=== PATIENT | female | born 1930 | race Caucasian/White ===

== ENCOUNTER 2019-06-06 19:36 | Emergency (ER) | payer OTHER ==
[~2019-06-06] VITALS: Ht 170.2 cm; Wt 71.2 kg
[~2019-06-06 19:36] MED LIST: ALEVE220 MG PO; ASPIR 8181 MG PO; CALCIUM 600 +1 EAC1 PO; GLIPIZIDE 10 MG10 MG PO; GLUCOPHAGE1000 MG PO; IBUPROFEN 200200 M1 PO; LANTUSSOLASTAR SUBQ; NOVOLOG100 UNIT/M SUBQ; VITAMIN D5000 UNIT PO
[2019-06-06] MEDS ORDERED: XARELTO10 MG PO (20:40)
[2019-06-06 21:05] LABS: ABSOLUTE NEUTROPHILS 5.5 thou/uL (1.4-8.2); BASOPHILS 0.7 % (0.0-2.0); EOSINOPHILS 0.9 % (0.0-3.0); HEMATOCRIT 36.4 % (37.0-47.0); HEMOGLOBIN 12.2 gm/dL (12.0-15.0); LYMPHOCYTES 22.1 % (24.0-44.0); MCH 29.5 pg (26.0-34.0); MCHC 33.6 g/dL (28.0-37.0); MONOCYTES 9.4 % (1.0-8.0); PLATELET COUNT 203 thou/uL (150-400); POLYS 66.9 % (36.0-66.0); RBC 4.13 mil/uL (4.20-5.00); RDW 13.8 % (10.5-14.5); WBC 8.2 thou/uL (4.0-11.0)
[2019-06-06 21:20] LABS: CALCIUM 9.4 mg/dL (8.5-10.1); POTASSIUM 3.6 mmol/L (3.5-5.1)
[2019-06-06 21:22] LABS: APTT 39.1 Seconds (24.5-32.8); INR 1.2; PROTIME 12.6 Seconds (9.3-11.4)
[2019-06-06 21:26] LABS: ALBUMIN 3.4 g/dL (3.4-5.0); TOTAL BILIRUBIN 0.6 mg/dL (<0.1-1.0); TOTAL PROTEIN 6.9 g/dL (6.4-8.2)
[2019-06-06 22:55] VITALS: BP 174/94
== END 2019-06-06 22:55 | disposition home or self-care (01) ==
LOC: ER 19:36
PROVIDERS: Physician Assistant
DX: M71.21 Synovial cyst of popliteal space [Baker], right knee (principal); S80.01XA Contusion of right knee, initial encounter; Z96.651 Presence of right artificial knee joint; Z90.49 Acquired absence of other specified parts of digestive tract; Z90.710 Acquired absence of both cervix and uterus; Z86.718 Personal history of other venous thrombosis and embolism; Z88.0 Allergy status to penicillin; Z88.2 Allergy status to sulfonamides; Z88.6 Allergy status to analgesic agent